=== PATIENT | female | born 1990 | race Caucasian/White ===

== ENCOUNTER 2025-01-21 21:20 | Emergency (ER) | payer BC, SELFPAY ==
--- OUTSIDE RECORDS SUMMARY | 2025-01-21 21:22 | XMS_ITS | Clinical Summary ---
Author Organization [facility] Address [address] [place] [id number] Care Team Providers Care Electric Repair Supervisor Name Role Phone 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 Gender Identity Not on file Sexual Orientation Not on file Last Filed Vital Signs Vital Sign Reading Time Taken Comments Blood Pressure 110/50 04/30/2006 11:00 AM VULCANIZING PRESS OPERATOR Pulse 76 04/30/2006 11:00 AM VULCANIZING PRESS OPERATOR Temperature - - Respiratory Rate - - Oxygen Saturation - - Inhaled Oxygen Concentration - - Weight 62.1 kg (137 lb) 04/30/2006 11:00 AM VULCANIZING PRESS OPERATOR Height - - Body Mass Index - - Plan of Treatment Health Maintenance Due Date Last Done Comments Tetanus booster 2002 Depression screening for age 12+ 2003 HIV for age 15-65 2006 BMI (ht and wt on same day) for age 18+ 2009 Hepatitis C screening for ag e 18-79 2009 Hepatitis B series for 19+ ( 1 of 3 - 19+ 3-dose series) 2010 COVID-19 vaccine series (2023- season) 2024 05/02/2021 Influenza Vaccine (#1) 2025 Pap test for age 21-65 10/21/2026 , 10/22/2023, 01/13/2020 Pneumococcal series for age 6-49 Aged Out No longer eligible b ased on patient's age to complete this topic Procedures Procedure Name Priority Date/Time Associated Diagnosis Comments HPV HIGH RISK Routine 10/22/2023 11:10 AM CDT from Last 3 Months or Most Recently Relevant to Health Maintenance Results * HPV HIGH RISK (10/22/2023 11:10 AM CDT) TYPE 16 Negative Negative 10/28/2023 11:01 AM CDT [facility] TYPE 18 Negative Negative 10/28/2023 11:01 AM CDT [facility] OTHER HIGH RISK TYPES Negative Negative 10/28/2023 11:01 AM CDT [facility] Other (Cervical) 10/22/2023 11:10 AM CDT 10/23/2023 9:28 AM CDT Narrative [facility] - 10/28/2023 11:01 AM CDT HPV types 16, 18, 31, 33, 35, 39, 45, 51, 52, 56, 58, 59, 66 and 68 DNA were undetectable or below the pre-set threshold. Methodology: Jodee Rosa 4800 HPV Test us Mike Chery MD MICROBIOLOGY Final Result [facility] [address] [place] [address], from Last 3 Months or Most Recently Relevant to Health Maintenance Insurance [facility] Care Teams Electric Repair Supervisor Relationship Specialty Start Date End Date [facility] PCP - General 04/30/06
[2025-01-21 21:31] VITALS: BP 150/85; PULSE 89; RESP 18; TEMP 36.7; O2SAT 99; BMI 29.2
[2025-01-21 21:37] LABS: Appearance Urine Clear (Clear)
--- NOTE | 2025-01-21 21:41 | ED_ITS ---
HPI - General Adult General Chief complaint: Abdominal Pain Stated complaint: right side abdominal pain Time Seen by Provider: 01/21/25 21:27 History of Present Illness HPI narrative: CC: Right Lower Abdominal Pain pt. with pain since 1300 today. denies fevers, n/v, diarrhea. last bm 01/21-- normal. 34-year-old woman presenting to the emergency department with concern of abdominal pain right-sided beginning about 6 hours prior to presentation here today. Pain began prior to eating this afternoon. Does not describe particular food intolerances. Had a little difficult time unusually with a bowel movement today but would not otherwise consider self constipated. Gets the Depo so uncertain where her menstrual cycle is. Never had an ovarian cyst. Pain is exacerbated with movement in general and pleuritic. She has no respiratory symptoms otherwise. No cough. No shortness of breath. No dysuria or frequency or urgency. No hematuria. At 1 point describes pain almost like a persistent stitch/side ache. Did smoke when she was younger. Related Data Previous Rx's ?Medication ?Instructions ?Recorded dextroamphetamine-amphetamine ER 60 mg (2 x 30 mg) PO QAM #60 caps 01/04/25 30 mg 24hr capsule,extend release Allergies Allergy/AdvReac Type Severity Reaction Status Date / Time No Known Allergies Allergy Unknown Verified 01/21/25 21:33 Review of Systems Status of ROS: Reports: 6 or more systems reviewed and unremarkable except as noted in History and below [facility] Medical History ADHD ?F90.9 - Attention-deficit hyperactivity disorder, unspecified type (ICD-10) Normal spontaneous vaginal delivery ?O80 - Encounter for full-term uncomplicated delivery (ICD-10) History of severe acute respiratory syndrome coronavirus 2 (SARS-CoV-2) disease ?Z86.16 - Personal history of COVID-19 (ICD-10) Surgical History Status post open reduction with internal fixation (ORIF) of fracture of ankle (10/19/07) ?Z98.890 - Other specified postprocedural states (ICD-10) ?Z87.81 - Personal history of (healed) traumatic fracture (ICD-10) Status post open reduction with internal fixation (ORIF) of fracture of ankle (02/01/09) ?Z98.890 - Other specified postprocedural states (ICD-10) ?Z87.81 - Personal history of (healed) traumatic fracture (ICD-10) Family History Father Alcoholism Aunt Breast cancer Social History Narrative: cigarette smoker has 1 child- daughterPaul What is your current living situation?: I presently have a place to live Problems where you live: pests, such as bugs, ants, or mice In the past 12 months, utilities in danger of being shut off: yes In past 12 months, lack of transportation kept you from medical appts, meetings, work, or getting things needed for daily living: no In the past 12 mos, have been you worried that your food would run out before you had money to buy more?: never true In the past 12 mos, the food you bought just didn't last and you didn't have money to buy more?: never true Smoking Status: Never smoker Second hand tobacco smoke exposure: No How often do you have a drink containing alcohol: never AUDIT-C Alcohol total score: 0 Non-prescribed substance use: denies use How often does anyone, including family, friends and others, physically hurt you : never How often does anyone, including family, friends and others, insult or talk down to you: rarely How often does anyone, including family, friends and others, threaten you with harm: never How often does anyone, including family, friends and others, scream or curse at you: rarely Health Related Social Needs: Inadequate housing (Z59.1) and Other personal risk factors, not elsewhere classified (Z91.89) Exam Narrative: Exam Narrative: Pleasant. Calm. Appears uncomfortable. Breathing easily. Lungs are clear. Heart in regular rate and rhythm without murmur rub or gallop. Abdomen with present bowel sounds. Pain is primarily reproducible in the right mid abdomen little bit up into the right upper quadrant. She does note this pain is reproduced in this area of when she takes a deep breath. Not clearly rib edge pain. No peritoneal signs. Extremities are well perfused without edema. There is no tenderness over the calves/negative Homans. Const: Vital Signs, click to edit/add: Vital Signs - 24 hr 01/21/25 21:31 Temperature 98.0 F Pulse Rate [Right Pulse Oximeter] 89 Respiratory Rate 18 Blood Pressure [Ri ght Upper Arm] 150/85 H Pulse Oximetry 99 Oxygen Delivery Me thod Room Air Documenting provider has reviewed patient's vital signs: yes Course Vital Signs Vital signs: Initial Vital Signs Temperature 98.0 F 01/21/25 21:31 Temperature Source Temporal Artery Scan 01/21/25 21:31 Pulse Rate 89 01/21/25 21:31 Respiratory Rate 18 01/21/25 21:31 Blood Pressure 150/85 H 01/21/25 21:31 Blood Pressure Mean 106 H 01/21/25 21:31 Blood Pressure Position Sitting 01/21/25 21:31 Pulse Oximetry 99 01/21/25 21:31 Oxygen Delivery Method Room Air 01/21/25 21:31 Vital Signs Temperature 98.0 F 01/21/25 21:31 Pulse Rate 89 01/21/25 21:31 Respiratory Rate 18 01/21/25 21:31 Blood Pressure 150/85 H 01/21/25 21:31 Pulse Oximetry 99 01/21/25 21:31 Oxygen Delivery Method Room Air 01/21/25 21:31 Temperature 98.0 F 01/22/25 00:16 Pulse Rate 85 01/22/25 00:16 Respiratory Rate 18 01/22/25 00:16 Blood Pressure 141/74 H 01/22/25 00:16 Pulse Oximetry 99 01/22/25 00:15 Oxygen Delivery Method Room Air 01/22/25 00:15 Medications Administered Medications: Discontinued Medications Generic Name Dose Route Start Last Admin Trade Name Freq PRN Reason Stop Dose Admin Ketorolac Tromethamine 30 mg 01/22/25 00:06 01/22/25 00:10 Ketorolac 30 Mg/Ml Inj IVP 01/22/25 00:07 30 mg ONCE ONE Administration Morphine Sulfate 4 mg 01/22/25 00:06 01/22/25 00:10 Morphine 4 Mg/Ml Inj IVP 01/22/25 00:07 4 mg ONCE ONE Administration Medical Decision Making MDM Narrative Medical decision making narrative: Clearly uncomfortable. Differential would include pulmonary embolus however no respiratory symptoms other than the pleuritic nature which I think is actually exacerbating reproducible pain in the abdomen. Possible gallbladder disease or ureteral colic and stone. Possible constipation related or diverticulitis. Mesenteric adenitis? Is not really with discomfort in the adnexum and with history of Depo and to this point knows this I think less likely to be of ovarian origin. Pain is not a torsion level. Story is not exactly great for ureteral stone either. Possibly high-riding appendicitis. Doubtful vascular disruption. Low lying right-sided pneumonia? She does not feel that she wants anything for pain or nausea at this point. Will check labs and see if this direct imaging a little bit better as I think story and exam is not resulting in clarity I would like. Urinalysis does return with blood. CRP is a little elevated at 2.9. White count otherwise is reassuring. I think at this point will need to image as she maintains discomfort. Labs are otherwise reassuring. I think good visualization will be obtained without contrast. Might prompt further contrasted imaging as well. She was expressing desire I think not to have IV contrast possible. Non contrasted CT abdomen and pelvis independently reviewed by me is without evidence of clear abnormality. I do feel like there is excessive right-sided and transverse colonic stool. This could be contributing. Indication: Right mid upper quadrant abdominal pain Technique: Noncontrast CT through the abdomen and pelvis with multiplanar reformats. Comparison: None Findings: Lower chest: No acute abnormality appreciated. Hepatobiliary: No significant parenchymal abnormality is appreciated. Spleen: Unremarkable. Pancreas: No acute abnormality appreciated. Adrenal glands: No acute abnormality appreciated. Kidneys: No significant parenchymal abnormality appreciated. No visualized calculi. No hydronephrosis. Bowel: No obstruction. No focal perienteric or pericolonic stranding is appreciated. The appendix is visualized and appears unremarkable. Vascular: Poorly evaluated on this noncontrast examination. Lymph nodes: No gross lymphadenopathy. Peritoneum: No free air. No free fluid. : No acute abnormality appreciated. Soft tissues: No acute abnormality appreciated. Bones: No acute fracture. No lytic or blastic lesion. Mild lumbosacral spondylosis. Impression: Allowing for the absence of IV contrast, no acute abnormality is appreciated. Please note that all CT scans at this facility use dose modulation, iterative reconstruction, and/or weight-based dosing when appropriate to reduce radiation dose to as low as reasonably achievable. Dictated by Radames Romano MD @ 01/21/2025 11:51:34 PM Ultimately did feel she would appreciate some pain medication before leaving the emergency department. Ordered for ketorolac and some morphine for more immediate effect. See patient discharge plan for further discussion I am sorry I have not managed to give you a clear answer of what is causing your pain. You can take up to 800 mg of ibuprofen or up to 1000 mg of acetaminophen per dose. You did receive 4 mg of morphine and 30 mg of ketorolac urine your IV. As discussed a prescribing some Shaw[place] from [employer]. Each tablet of Shawnee contains 5 mg of hydrocodone and 325 mg of acetaminophen. Considering that having a bowel movement was more difficult today, you might try adding MiraLax equivalent into at least 8 oz of liquid up to 3 times daily adjusting to stool consistency over the next week. If you are experiencing rather hard stool, consider placement of an enema or suppository. If pain persisting like this for another 24-48 hours I would be re-evaluated. Be seen also for marked increase in persistent pain, repeated vomiting, associated fever, increasing shortness of breath Medical Records Medical records reviewed: Yes I reviewed the patient's medical records Lab Data Lab results reviewed: Yes I reviewed the patient's lab results Labs: Lab Results 01/21/25 01/21/25 Range/Units 21:25 22:07 WBC 8.01 (4.50-11.00) K/uL RBC 4.85 (4.00-5.20) m/uL Hgb 14.3 (12.0-16.0) gm/dL Hct 42.1 (33.0-51.0) % MCV 87 (80-100) fL MCH 30 (26-34) pg MCHC 34 (32-36) gm/dL RDW Coeff of Gisele 13.1 (11.5-15.5) % Plt Count 209 (140-440) K/uL Neut % (Auto) 73.8 H (42.0-72.0) % Lymph % (Auto) 16.0 L (20-44) % Weber % (Auto) 9.5 (0.0-11.0) % Eos % (Auto) 0.1 (0.0-7.0) % Baso % (Auto) 0.5 (0.0-3.0) % Neut # (Auto) 5.90 (1.7-7.0) K/uL Lymph # (Auto) 1.30 (0.90-2.90) K/uL Weber # (Auto) 0.80 (0.00-0.90) K/UL Eos # (Auto) 0.01 (0.00-0.50) K/uL Baso # (Auto) 0.04 (0.00-0.30) K/uL Abs Immat Gran (auto) 0.01 (0.00-0.30) K/uL Imm/Tot Granulo (auto) 0.1 % Sodium 135 (135-149) mmol/L Potassium 4.0 (3.6-5.1) mmol/L Chloride 103 (96-114) mmol/L Carbon Dioxide 26 (20-32) mmol/L Anion Gap 6 L (7-15) mEq/L BUN 9 (5-24) mg/dL Creatinine 0.7 (0.5-1.5) mg/dL Estimated Creat Clear 98.71 Estimated GFR 117 ml/min Glucose 97 (60-115) mg/dL Calcium 9.5 (8.4-10.6) mg/dL Total Bilirubin 0.4 (0.1-1.5) mg/dL Direct Bilirubin 0.1 (0.0-0.5) mg/dL AST 24 (12-35) U/L ALT 21 (4-35) U/L Alkaline Phosphatase 83 (40-150) U/L C-Reactive Protein 2.9 H (0.5-1.0) mg/dL Total Protein 7.4 (6.0-8.3) g/dL Albumin 4.4 (3.3-5.0) g/dL Urine Color Yellow (Yellow) Urine Appearance Clear (Clear) Urine pH 6.0 (5.0-8.5) Ur Specific [place] 1.025 (1.000-1.030) Urine Protein Negative (Negative) Urine Glucose (UA) Negative (Negative) Urine Ketones Negative (Negative) Urine Blood 2+ A (Negative) Urine Nitrite Negative (Negative) Urine Bilirubin Negative (Negative) Urine Urobilinogen 0.2 (0.2-1.0) Ur Leukocyte Esterase Negative (Negative) Urine RBC 2-5 A (0-2) Urine WBC 0-2 (0-5) Ur Squamous Epith Cells Few (None-Few) Urine Bacteria None (None) Urine HCG, Qual Negative (Negative) Discharge Plan Discharge Clinical Impression: Right-sided abdominal pain of unknown etiology Patient Disposition: Home w/ Parent or Adult Condition: Stable Additional Instructions: I am sorry I have not managed to give you a clear answer of what is causing your pain. You can take up to 800 mg of ibuprofen or up to 1000 mg of acetaminophen per dose. You did receive 4 mg of morphine and 30 mg of ketorolac urine your IV. As discussed a prescribing some [place] from [employer]. Each tablet of Shawnee c ontains 5 mg of hydrocodone and 325 mg of acetaminophen. Considering that having a bowel movement was more difficult today, you might try adding MiraLax equivalent into at least 8 oz of liquid up to 3 times daily adjusting to stool consistency over the next week. If you are experiencing rather hard stool, consider placement of an enema or suppository. If pain persisting like this for another 24-48 hours I would be re-evaluated. Be seen also for marked increase in persistent pain, repeated vomiting, associated fever, increasing shortness of breath Prescriptions: No Action dextroamphetamine-amphetamine 30 mg capsule,extended release 24hr 60 mg PO QAM Qty: 60 0RF Follow Up/Referrals: Ronald Cazares MD [Primary Care Provider, Family Practice] Stand Alone Forms: [facility] Info Instructions
[2025-01-21 21:45] LABS: Ur HCG Qualitative* Negative (Negative)
[2025-01-21 22:18] LABS: Hematocrit 42.1 % (33.0-51.0); Hemoglobin* 14.3 gm/dL (12.0-16.0); Immature Granulocytes Abs Auto 0.01 K/uL (0.00-0.30); Immature Granulocytes Pct Auto 0.1 %; Mean Corpuscular HGB Conc 34 gm/dL (32-36); Mean Corpuscular Hemoglobin 30 pg (26-34); Mean Corpuscular Volume 87 fL (80-100); RDW Coefficient of Variation % 13.1 % (11.5-15.5); Red Blood Count 4.85 m/uL (4.00-5.20); White Blood Count* 8.01 K/uL (4.50-11.00)
[2025-01-21 22:21] LABS: Lymphocytes Absolute Auto 1.30 K/uL (0.90-2.90); Slide Review Reflex No
[2025-01-21 22:40] LABS: Albumin* 4.4 g/dL (3.3-5.0); Chloride* 103 mmol/L (96-114); Sodium* 135 mmol/L (135-149)
[2025-01-21 22:41] LABS: Potassium* 4.0 mmol/L (3.6-5.1)
[2025-01-21 22:43] LABS: Alanine Aminotransferase* 21 U/L (4-35); Anion Gap 6 mEq/L (7-15); Aspartate Amino Transferase* 24 U/L (12-35); Blood Urea Nitrogen* 9 mg/dL (5-24); Carbon Dioxide* 26 mmol/L (20-32); Creatinine* 0.7 mg/dL (0.5-1.5); Est. Creatinine Clearance* 98.71; Estimated Glomerular Filt Rate 117 ml/min; Total Protein* 7.4 g/dL (6.0-8.3)
[2025-01-21 22:44] LABS: Alkaline Phosphatase* 83 U/L (40-150); Bilirubin Direct* 0.1 mg/dL (0.0-0.5); Bilirubin Total* 0.4 mg/dL (0.1-1.5); Calcium* 9.5 mg/dL (8.4-10.6); Glucose* 97 mg/dL (60-115)
--- NOTE | 2025-01-21 23:09 | CRLHL7_ITS ---
For Patients: As a result of the Century Cures Act, medical imaging exams and procedure reports are released immediately into your electronic medical record. You may view this report before your referring provider. If you have questions, please contact your health care provider. Indication: Right mid upper quadrant abdominal pain Technique: Noncontrast CT through the abdomen and pelvis with multiplanar reformats. Comparison: None Findings: Lower chest: No acute abnormality appreciated. Hepatobiliary: No significant parenchymal abnormality is appreciated. Spleen: Unremarkable. Pancreas: No acute abnormality appreciated. Adrenal glands: No acute abnormality appreciated. Kidneys: No significant parenchymal abnormality appreciated. No visualized calculi. No hydronephrosis. Bowel: No obstruction. No focal perienteric or pericolonic stranding is appreciated. The appendix is visualized and appears unremarkable. Vascular: Poorly evaluated on this noncontrast examination. Lymph nodes: No gross lymphadenopathy. Peritoneum: No free air. No free fluid. : No acute abnormality appreciated. Soft tissues: No acute abnormality appreciated. Bones: No acute fracture. No lytic or blastic lesion. Mild lumbosacral spondylosis. Impression: Allowing for the absence of IV contrast, no acute abnormality is appreciated. Please note that all CT scans at this facility use dose modulation, iterative reconstruction, and/or weight-based dosing when appropriate to reduce radiation dose to as low as reasonably achievable. Dictated by Radames Romano MD @ 01/21/2025 11:51:34 PM (Electronically Signed)
[2025-01-22] MEDS: MORPHINE 4 MG/ML INJ IVP (00:10)
[2025-01-22 00:12] VITALS: O2SAT 99
[2025-01-22 00:15] VITALS: BP 141/74; PULSE 85; RESP 18; TEMP 36.7; O2SAT 99
[2025-01-22 00:16] VITALS: BP 141/74; PULSE 85; RESP 18; TEMP 36.7
== END 2025-01-22 00:15 | disposition home or self-care (01) ==
PROVIDERS: Emergency Provider Family Medicine; PCP Family Medicine
DX: R10.11 Right upper quadrant pain (principal)
CPT/HCPCS: 36415; 74176; 80048; 80076; 81001; 81025; 85025; 86140; 94761; 96374; 96375; 99284; J1885; J2270